=== PATIENT | female | born 1955 | race Caucasian/White ===

== ENCOUNTER 2021-01-23 17:11 | Emergency (ER) | payer BC ==
[~2021-01-23] VITALS: Ht 162.6 cm; Wt 93.2 kg
[2021-01-23 17:15] VITALS: BP 157/72
[2021-01-23] MEDS ORDERED: LIDOcaine 2% 10ml TOPICAL JELLY (Urojet) TP ONE (17:25)
[2021-01-23 18:04] LABS: CLARITY,URINE CLOUDY (Clear); COLOR,URINE YELLOW (Yellow); GLUCOSE, URINE NEGATIVE (Neg); KETONES,URINE TRACE mg/dl (Neg); LEUKOCYTE ESTERASE ,URINE TRACE (Neg); NITRITES, URINE NEGATIVE (Neg); OCCULT BLOOD,URINE NEGATIVE (Neg); PROTEIN,URINE 30 mg/dl (Neg); UROBILINOGEN,URINE 0.2 E.U/dL (0.2-1.0)
[2021-01-23 18:06] LABS: UA COLLECTION TYPE CLN CATCH MIDSTREAM
[2021-01-23 18:11] LABS: SQUAMOUS EPITHELIAL CELL,UR MANY /LPF (FEW)
[2021-01-23 18:12] LABS: BACTERIA,URINE FEW /HPF (Neg); MUCUS STRANDS FEW /LPF (Neg); RBC,URINE 0-2 /HPF (0-2); TRANSITIONAL EPI CELLS,URINE MODERATE /HPF; WBC,URINE 0-4 /HPF (0-4)
== END 2021-01-23 20:46 | disposition home or self-care (01) ==
LOC: ER 17:12
DX: R33.9 Retention of urine, unspecified (principal); F17.200 Nicotine dependence, unspecified, uncomplicated; Z72.89 Other problems related to lifestyle; Z88.2 Allergy status to sulfonamides
CPT/HCPCS: 51702; 81001; 99284

== ENCOUNTER 2021-09-24 13:28 | Emergency (ER) | payer BC, MEDICARE ==
[~2021-09-24] VITALS: Ht 160 cm; Wt 77.3 kg
[2021-09-24 14:12] VITALS: BP 137/80
--- NOTE | 2021-09-24 14:22 | NUR ---
Davidson very angry and speaking not nice to me out on the deck. I informed Davidson that he can choose to be nice or go wait in the car because I can take very good care of his without his attitude standing there staring at me, huffing and puffing, one hand on his hip, pacing back and forth.
--- NOTE | 2021-09-24 14:24 | NUR ---
patient and her are waiting in the car for results of the flu and COVID swab. Please call on [phone] name is Davidson.
[2021-09-24] MEDS ORDERED: CASIRIVIMAB/IMDEVIMAB (REGEN-COV) 600mg/600mg inject. SQ ONE ×4 (15:00)
[2021-09-24] MEDS ORDERED: CASIRIVIMAB/IMDEVIMAB inject. 10 ML in normal saline 100ml IV soln 100 ML IV ONE (15:55)
[2021-09-26] MEDS ORDERED: AZIT-83 PO (10:03)
[2021-09-26] MEDS ORDERED: ALBU18HF2 PO (10:03)
[2021-09-26] MEDS ORDERED: DILT300C53 PO (10:03)
[2021-09-26] MEDS ORDERED: LOSA100T57 PO (10:03)
[2021-09-26] MEDS ORDERED: SPIR25TA5 PO (10:03)
[2021-09-26] MEDS ORDERED: DULO30CA52 PO (10:03)
[2021-09-26] MEDS ORDERED: QUET25TA36 PO (10:03)
[2021-09-26] MEDS ORDERED: OMEP40CA21 PO (10:03)
== END 2021-09-24 17:26 | disposition home or self-care (01) ==
LOC: ER 13:28
DX: U07.1 COVID-19 (principal); R51.9 Headache, unspecified; Z72.89 Other problems related to lifestyle; Z88.2 Allergy status to sulfonamides
CPT/HCPCS: 87502; 87503; 87635; 99284; C9803; J3490; M0243; Q0244